=== PATIENT | male | born 1965 | race Caucasian/White ===

== ENCOUNTER 2016-07-18 00:15 | Emergency (ER) | payer OTHER ==
[~2016-07-18] VITALS: Ht 167.6 cm; Wt 74.6 kg
[2016-07-18] MEDS ORDERED: KEFLEX500 MG PO (01:28)
[2016-07-18] MEDS ORDERED: NORCO 5/3251 TABLET PO (01:28)
[2016-07-18] MEDS ORDERED: BACTRIM,SEPT1 TABLET PO (01:31)
[2016-07-18 01:57] VITALS: BP 170/90
== END 2016-07-18 01:58 | disposition home or self-care (01) ==
LOC: EME 00:15
PROC: 0H9GXZZ Drainage of Left Hand Skin, External Approach (ICD-10-PCS; principal; 2016-07-18)
DX: L02.512 Cutaneous abscess of left hand (principal); I10 Essential (primary) hypertension; Z91.14 Patient's other noncompliance with medication regimen; F17.200 Nicotine dependence, unspecified, uncomplicated
CPT/HCPCS: 99281; 99284

== ENCOUNTER 2017-08-26 07:55 | Emergency (ER) | payer OTHER ==
[~2017-08-26] VITALS: Ht 167.6 cm; Wt 78.0 kg
[~2017-08-26 07:55] MED LIST: BACTRIM,SEPT1 TABLET PO; KEFLEX500 MG PO; NORCO 5/3251 TABLET PO
[2017-08-26 07:58] VITALS: BP 151/90
[2017-08-26] MEDS ORDERED: NAPROSYN500 MG PO (09:04)
[2017-08-26] MEDS ORDERED: VOLTAREN 1% GE100 GM TP (09:04)
== END 2017-08-26 10:08 | disposition home or self-care (01) ==
LOC: EME 07:55
DX: M10.9 Gout, unspecified (principal); J44.9 Chronic obstructive pulmonary disease, unspecified; F17.200 Nicotine dependence, unspecified, uncomplicated
CPT/HCPCS: 73080; 99281; 99284